=== PATIENT | female | born 2000 | race Two or more races ===

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

== ENCOUNTER 2021-05-24 09:34 | Emergency (ER) | payer OTHER ==
[2021-05-24 09:49] VITALS: BP 115/59
[2021-05-24] MEDS ORDERED: ONDANSETRON ODT 4 MG TABLET TL STA (10:34)
[2021-05-24] MEDS ORDERED: ACETAMINOPHEN 325 MG TABLET PO STA (10:34)
[2021-05-24] MEDS ORDERED: IBUPROFEN 400 MG TABLET PO STA (10:35)
--- NOTE | 2021-05-24 10:37 | ED Physician Documentation ---
PD HPI HEADACHE - Stated complaint Stated Complaint: SOA/MIGRAINE/STOMACH PX - Chief complaint Chief Complaint: General - History obtained from History obtained from: Patient - History of Present Illness Timing - onset: Today, Yesterday Timing - duration: Days (2) Timing - details: Abrupt onset, Still present Worst headache ever?: No: Worst headache ever? Location: Front Quality: Throbbing Associated symptoms: Nausea. No: Fever, Weakness, Numbness Improved by: Rest Worsened by: Light Contributing factors: Other (She received her second Pfizer Covid shot 2 days ago and started feeling general aches, nausea, some migraine type headache yesterday into today. She does have history of some migraines in the past. Here largely for work note.). No: Recent illness, Trauma Recently seen: Clinic (COVID 2nd vaccine 2 days ago.) Review of Systems Constitutional: reports: Chills, Myalgias. denies: Fever Nose: denies: Rhinorrhea / runny nose, Congestion Throat: denies: Sore throat Respiratory: denies: Cough GI: reports: Nausea. denies: Vomiting, Diarrhea Neurologic: reports: Generalized weakness, Headache. denies: Focal weakness, Confused, Altered mental status PD PAST MEDICAL HISTORY - Past Medical History Cardiovascular: None Respiratory: None Neuro: Migraines Endocrine/Autoimmune: None - Past Surgical History Past Surgical History: No - Present Medications Home Medications: Ambulatory Orders Medication Instructions Recorded Confirmed Nitrofurantoin Monohyd/M-Cryst 100 mg PO BID #10 capsule 09/10/20 [Macrobid 100 mg Capsule] Phenazopyridine HCl [Pyridium] 200 mg PO TID PRN #6 tablet 09/10/20 Ondansetron Odt [Zofran] 4 mg TL Q6H PRN #10 tablet 05/24/21 - Allergies Allergies/Adverse Reactions: Allergies Allergy/AdvReac Type Severity Reaction Status Date / Time No Known Drug Allergies Allergy Verified 09/10/20 22:07 - Social History Does the pt smoke?: No Smoking Status: Never smoker Does the pt drink ETOH?: No Does the pt have substance abuse?: No - Immunizations Immunizations are current?: Yes PD ED PE NORMAL - Vitals Vital signs reviewed: Yes - General General: Alert and oriented X 3, No acute distress, Well developed/nourished - HEENT HEENT: Pharynx benign - Neck Neck: Supple, no meningeal sign, No adenopathy - Cardiac Cardiac: RRR, No murmur - Respiratory Respiratory: Clear bilaterally - Abdomen Abdomen: Soft, Non tender - Derm Derm: Normal color, Warm and dry - Neuro Neuro: Alert and oriented X 3, No motor deficit, Normal speech Results - Vitals Vitals: Vital Signs - 24 hr 05/24/21 09:39 Temperature 36.4 C L Heart Rate 94 Respiratory 16 Rate Blood Pressure 115/59 L O2 Saturation 98 Oxygen O2 Source Room air PD MEDICAL DECISION MAKING - ED course Complexity details: considered differential (Having significant side effects posterior Covid vaccine. She declined anything particular medication becker. Largely here for work note but did accept some ibuprofen and nausea meds.), d/w patient Departure - Departure Disposition: 01 Home, Self Care Clinical Impression: Status post administration of all doses of COVID-19 vaccine series, Myalgia after COVID-19 vaccination Headache Qualifiers: Headache type: unspecified Headache chronicity pattern: acute headache Intractability: not intractable Qualified Code(s): R51.9 - Headache, unspecified Condition: Stable Record reviewed to determine appropriate education?: Yes Follow-Up: [facility] [Provider Group] Prescriptions: Ondansetron Odt [Zofran] 4 mg TL Q6H PRN #10 tablet PRN Reason: Nausea / Vomiting Comments: At home today with adequate fluids. Tylenol or ibuprofen as needed for pains and headaches. I did transmit a prescription for Zofran (ondansetron) for [place] [facility] [place] [facility] Otherwise rest at home today and tomorrow and you should be improved in that timeframe. Forms: Activity restrictions Discharge Date/Time: 05/24/21 11:10
== END 2021-05-24 11:10 | disposition home or self-care (01) ==
LOC: ED 09:34
DX: R51.9 Headache, unspecified (principal); M79.10 Myalgia, unspecified site; R11.0 Nausea; T50.B95A Adverse effect of other viral vaccines, initial encounter
CPT/HCPCS: 99282; A9270; Q0162

== ENCOUNTER 2021-05-25 10:39 | Emergency (ER) | payer OTHER ==
--- NOTE | 2021-05-25 11:25 | ED Physician Documentation ---
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 Now with 2 days of increased pain and redness around nailbed. No drainage.). No: Fall, Twist, Crush Timing - onset: Yesterday Timing - details: Abrupt onset Associated symptoms: Swelling, Discolored Similar symptoms before: Has not had sx before Review of Systems Constitutional: denies: Fever Neurologic: denies: Focal weakness, Numbness PD PAST MEDICAL HISTORY - Past Medical History Cardiovascular: None Respiratory: None Neuro: Migraines Endocrine/Autoimmune: None - Past Surgical History Past Surgical History: No - Present Medications Home Medications: Ambulatory Orders Medication Instructions Recorded Confirmed Nitrofurantoin Monohyd/M-Cryst 100 mg PO BID #10 capsule 09/10/20 [Macrobid 100 mg Capsule] Phenazopyridine HCl [Pyridium] 200 mg PO TID PRN #6 tablet 09/10/20 Ondansetron Odt [Zofran] 4 mg TL Q6H PRN #10 tablet 05/24/21 Mupirocin Calcium [Mupirocin] 1 applic TP TID #15 gm 05/25/21 Sulfamethox/Trimeth 800/160 1 each PO BID #10 tablet 05/25/21 [Bactrim Ds 800/160] - Allergies Allergies/Adverse Reactions: Allergies Allergy/AdvReac Type Severity Reaction Status Date / Time No Known Drug Allergies Allergy Verified 05/25/21 11:03 - Social History Does the pt smoke?: No Smoking Status: Never smoker Does the pt drink ETOH?: No Does the pt have substance abuse?: No - Immunizations Immunizations are current?: Yes PD ED PE NORMAL - Vitals Vital signs reviewed: Yes - General General: Alert and oriented X 3, Well developed/nourished - Extremities Extremities: Other (right great toe nailbed with fungal decay. There is redness and swelling of nailbed under the area. No redness at corner per se, looks like nailbed infection.) - Neuro Neuro: Alert and oriented X 3, No motor deficit, No sensory deficit Results - Vitals Vitals: Oxygen O2 Source Room air Departure - Departure Disposition: 01 Home, Self Care Clinical Impression: Infected nailbed of toe Qualifiers: Laterality: left Qualified Code(s): L03.032 - Cellulitis of left toe Condition: Stable Record reviewed to determine appropriate education?: Yes Prescriptions: Sulfamethox/Trimeth 800/160 [Bactrim Ds 800/160] 1 each PO BID #10 tablet Mupirocin Calcium [Mupirocin] 1 applic TP TID #15 gm Comments: This looks like an early infection of the nailbed. Soak in warm water 2-3 times daily and apply mupirocin antibiotic ointment lightly to the area. Bactrim oral antibiotic as directed. I would anticipate improvement over 2-3 days. Recheck if not better or worsening. Tylenol or Ibuprofen for pains. I transmitted the prescriptions to [facility] pharmacy. Discharge Date/Time: 05/25/21 12:15
[2021-05-25] MEDS ORDERED: LIDOCAINE OINTMENT 5% 35.44 GM TUBE TOP STA (11:35)
[2021-05-25] MEDS ORDERED: SULFAMETH/TRIMETH DS 800/160 MG TABLET PO STA (11:36)
[2021-05-25 12:15] VITALS: BP 104/66
== END 2021-05-25 12:15 | disposition home or self-care (01) ==
LOC: ED 10:39
DX: L03.032 Cellulitis of left toe (principal)
CPT/HCPCS: 99282; 99283; A9270

== ENCOUNTER 2021-07-08 22:23 | Emergency (ER) | payer OTHER ==
[2021-07-08 22:40] LABS: RAPID STREP SCREEN Negative (Negative)
--- NOTE | 2021-07-08 23:45 | ED Physician Documentation ---
PD HPI HEENT - Stated complaint Stated Complaint: TIGHTNESS IN THROAT - Chief complaint Chief Complaint: Heent - History obtained from History obtained from: Patient - History of Present Illness Timing - onset: How many days ago (1-2) Timing - duration: Days Timing - details: Gradual onset Location: Throat Associated symptoms: Cough. 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 denies fever. She is COVID vaccinated. Review of Systems Constitutional: denies: Fever Ears: denies: Ear pain Nose: denies: Congestion, Sinus pressure / pain Throat: reports: Sore throat Respiratory: reports: Cough. denies: Dyspnea PD PAST MEDICAL HISTORY - Past Medical History Cardiovascular: None Respiratory: None Neuro: Migraines Endocrine/Autoimmune: None - Past Surgical History Past Surgical History: No - Present Medications Home Medications: Ambulatory Orders Medication Instructions Recorded Confirmed Nitrofurantoin Monohyd/M-Cryst 100 mg PO BID #10 capsule 09/10/20 [Macrobid 100 mg Capsule] Phenazopyridine HCl [Pyridium] 200 mg PO TID PRN #6 tablet 09/10/20 Ondansetron Odt [Zofran] 4 mg TL Q6H PRN #10 tablet 05/24/21 Mupirocin Calcium [Mupirocin] 1 applic TP TID #15 gm 05/25/21 Sulfamethox/Trimeth 800/160 1 each PO BID #10 tablet 05/25/21 [Bactrim Ds 800/160] - Allergies Allergies/Adverse Reactions: Allergies Allergy/AdvReac Type Severity Reaction Status Date / Time No Known Drug Allergies Allergy Verified 07/08/21 22:24 - Social History Does the pt smoke?: No Smoking Status: Never smoker Does the pt drink ETOH?: No Does the pt have substance abuse?: No - Immunizations Immunizations are current?: Yes - POLST Patient has POLST: No PD ED PE NORMAL - Vitals Vital signs reviewed: Yes - General General: Alert and oriented X 3, No acute distress, Well developed/nourished - HEENT HEENT: Moist mucous membranes, Other (mild posterior oropharyngeal erythema without exudate or obvious swelling) - Neck Neck: Supple, no meningeal sign - Respiratory Respiratory: No respiratory distress, Clear bilaterally Results - Vitals Vitals: Vital Signs - 24 hr 07/08/21 07/09/21 22:24 00:30 Temperature 36.5 C 36.6 C Heart Rate 72 73 Respiratory 16 17 Rate Blood Pressure 116/68 115/69 O2 Saturation 98 98 Oxygen O2 Source Room air - Labs Labs: Laboratory Tests 07/08/21 22:28 Group A Strep Rapid Negative PD MEDICAL DECISION MAKING - ED course Complexity details: considered differential, d/w patient ED course: rapid strep negative. she is given PO decadron, return precautions discussed, work excuse provided Departure - Departure Disposition: 01 Home, Self Care Clinical Impression: Pharyngitis Condition: Good Instructions: ED Pharyngitis Viral Report Pending Forms: Activity restrictions Discharge Date/Time: 07/09/21 00:30
[2021-07-09] MEDS ORDERED: DEXAMETHASONE 10 MG/ML VIAL PO STA (00:23)
[2021-07-09] MEDS ORDERED: CHERRY SYRUP 10 ML UDC PO ONE (00:23)
[2021-07-09 00:31] VITALS: BP 115/69
== END 2021-07-09 00:30 | disposition home or self-care (01) ==
LOC: ED 22:23
DX: J02.9 Acute pharyngitis, unspecified (principal)
CPT/HCPCS: 87070; 87430; 99282; 99283

== ENCOUNTER 2021-07-15 16:24 | Emergency (ER) | payer OTHER ==
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
[2021-07-15 17:07] LABS: BASOPHILS # (AUTO) 0.1 10^3/uL (0.0-0.1); BASOPHILS % (AUTO) 0.6 %; EOSINOPHILS # (AUTO) 0.2 10^3/uL (0.0-0.7); EOSINOPHILS % (AUTO) 1.7 %; HCT - HEMATOCRIT 40.8 % (37.0-47.0); HGB - HEMOGLOBIN 13.1 g/dL (12.0-16.0); LYMPHOCYTES # (AUTO) 3.3 10^3/uL (1.5-3.5); LYMPHOCYTES % (AUTO) 30.3 %; MEAN CORPUSCULAR HEMOGLOBIN 29.8 pg (27.0-31.0); MEAN CORPUSCULAR HGB CONC 32.1 g/dL (32.0-36.0); MEAN CORPUSCULAR VOLUME 92.7 fL (81.0-99.0); MEAN PLATELET VOLUME 10.6 fL (7.9-10.8); MONOCYTES # (AUTO) 0.7 10^3/uL (0.0-1.0); MONOCYTES % (AUTO) 6.4 %; NEUTROPHILS # (AUTO) 6.6 10^3/uL (1.5-6.6); NEUTROPHILS % (AUTO) 60.6 %; PLT - PLATELET COUNT 291 10^3/uL (130-450); RED CELL DISTRIBUTION WIDTH 13.5 % (12.0-15.0)
[2021-07-15 17:23] LABS: ACETAMINOPHEN < 10 ug/mL (10-30); ALBUMIN 4.5 g/dL (3.2-5.5); ALBUMIN/GLOBULIN RATIO 1.3 (1.0-2.2); ALKALINE PHOSPHATASE 76 IU/L (42-121); ALT ALANINE AMINOTRANSFERASE 28 IU/L (10-60); AST ASPARTATE AMINOTRANSFERASE 20 IU/L (10-42); BILIRUBIN,TOTAL 0.6 mg/dL (0.2-1.0); BUN - BLOOD UREA NITROGEN 11 mg/dL (6-20); CALCIUM 9.7 mg/dL (8.5-10.3); CARBON DIOXIDE - CO2 25 mmol/L (21-32); CHLORIDE 103 mmol/L (101-111); CREATININE 0.7 mg/dL (0.4-1.0); ETOH - ETHANOL < 5.0 mg/dL; GFR - MDRD 107 (>89); GLUCOSE 93 mg/dL (70-100); LIPASE 37 U/L (22-51); POTASSIUM 3.8 mmol/L (3.5-5.0); SALICYLATE < 6.0 mg/dL; SODIUM 138 mmol/L (135-145); TOTAL PROTEIN 7.9 g/dL (6.7-8.2)
[2021-07-15 17:32] LABS: MUDS CUTOFF CONCENTRATIONS CUTOFF CONC BELOW:
[2021-07-15 17:40] LABS: BILIRUBIN,URINE NEGATIVE (NEGATIVE); GLUCOSE, URINE (UA) NEGATIVE (NEGATIVE); KETONES,URINE (UA) NEGATIVE (NEGATIVE); LEUKOCYTE ESTERASE, URINE NEGATIVE (NEGATIVE); NITRITE,URINE NEGATIVE (NEGATIVE); OCCULT BLOOD,URINE TRACE-INTA (NEGATIVE); PROTEIN,URINE NEGATIVE (NEGATIVE); UROBILINOGEN,URINE 0.2 (NORMAL) E.U./dL (NORMAL)
[2021-07-15 17:42] LABS: CLARITY,URINE CLEAR (CLEAR); HCG UR QUAL NEGATIVE
[2021-07-15 17:52] LABS: AMPHETAMINE SCREEN,URINE NEGATIVE (NEGATIVE); COCAINE SCREEN URINE NEGATIVE (NEGATIVE); METHAMPHETAMINES SCREEN, URINE NEGATIVE (NEGATIVE); OPIATE SCREEN, URINE NEGATIVE (NEGATIVE); THC CANNABINOID SCREEN, URINE NEGATIVE (NEGATIVE)
[2021-07-15 17:53] LABS: BARBITURATE SCREEN,UR NEGATIVE (NEGATIVE); BENZODIAZEPINES SCREEN, URINE NEGATIVE (NEGATIVE); METHADONE SCREEN, URINE NEGATIVE (NEGATIVE); OXYCODONE SCREEN, URINE NEGATIVE (NEGATIVE); PROPOXYPHENE SCREEN, URINE NEGATIVE (NEGATIVE); TRICYCLIC ANTIDEPRESSANT,URINE NEGATIVE (NEGATIVE)
[2021-07-15 18:29] LABS: B. PARAPERTUSSIS- RESP PCR PAN NOT DETECTED; B. PERTUSSIS- RESP PCR PANEL NOT DETECTED; C. PNEUMONIAE- RESP PCR PANEL NOT DETECTED; CORONAVIRUS 229E-RESP PCR NOT DETECTED; CORONAVIRUS HKU1-RESP PCR NOT DETECTED; CORONAVIRUS NL63-RESP PCR NOT DETECTED; CORONAVIRUS OC43-RESP PCR DETECTED; HUMAN METAPNEUMOVIRUS NOT DETECTED; INFLUENZA A- RESP PCR PANEL NOT DETECTED; INFLUENZA B - RESP PCR PANEL NOT DETECTED; M. PNEUMONIAE- RESP PCR PANEL NOT DETECTED; PARAINFLUENZA VIRUS 1 NOT DETECTED; PARAINFLUENZA VIRUS 2 NOT DETECTED; PARAINFLUENZA VIRUS 3 NOT DETECTED; PARAINFLUENZA VIRUS 4 NOT DETECTED; RHINOVIRUS/ENTEROVIRUS NOT DETECTED; RSV- RESP PCR PANEL NOT DETECTED; SARS-CoV-2 -RESP PCR PANEL NOT DETECTED
[2021-07-15 21:26] VITALS: BP 106/57
== END 2021-07-15 21:43 ==
LOC: ED 16:24
DX: F31.30 Bipolar disorder, current episode depressed, mild or moderate severity, unspecified (principal); F22 Delusional disorders; R45.851 Suicidal ideations; Z20.822 Contact with and (suspected) exposure to COVID-19
CPT/HCPCS: 0202U; 36415; 80053; 80306; 80307; 80320; 80329; 81003; 81025; 83690; 84443; 85025; 99283; 81001; 87086

== ENCOUNTER 2021-11-23 09:54 | Emergency (ER) | payer OTHER ==
[2021-11-23] MEDS ORDERED: SODIUM CHLORIDE 0.9% 1,000 ML IV STA (10:09)
[2021-11-23] MEDS ORDERED: METOCLOPRAMIDE 10 MG/2 ML VIAL IVP STA (10:09)
--- NOTE | 2021-11-23 10:10 | ED Physician Documentation ---
PD HPI ABD PAIN - Stated complaint Stated Complaint: VOMITING/HEAD PX - Chief complaint Chief Complaint: Abd Pain - History obtained from History obtained from: Patient - Additional information Additional information: at 8 weeks gestation presents with vomiting in . It been progressive over the last week or so despite taking vitamin B. She denies abdominal pain but does have a headache with it mild in intensity mostly on the right side associated with some light sensitivity. Has not taken any prescribed medications for the nausea or headache. It was not a sudden onset nor worst headache of life. Review of Systems Constitutional: denies: Fever, Chills Throat: reports: Reviewed and negative Cardiac: reports: Reviewed and negative Respiratory: reports: Reviewed and negative PD PAST MEDICAL HISTORY - Past Medical History Cardiovascular: None Respiratory: None Neuro: Migraines Endocrine/Autoimmune: None Psych: Depression, Anxiety - Past Surgical History Past Surgical History: No - Present Medications Home Medications: Ambulatory Orders Medication Instructions Recorded Confirmed Metoclopramide [Reglan] 10 mg PO Q6H PRN #20 tablet 11/23/21 - Allergies Allergies/Adverse Reactions: Allergies Allergy/AdvReac Type Severity Reaction Status Date / Time No Known Drug Allergies Allergy Verified 11/23/21 10:00 - Social History Does the pt smoke?: No Smoking Status: Never smoker Does the pt drink ETOH?: No Does the pt have substance abuse?: No - Immunizations Immunizations are current?: Yes - POLST Patient has POLST: No PD ED PE NORMAL - Vitals Vital signs reviewed: Yes - General General: Alert and oriented X 3, No acute distress - HEENT HEENT: PERRL, EOMI - Neck Neck: Supple, no meningeal sign, No bony TTP - Cardiac Cardiac: RRR, No murmur - Respiratory Respiratory: No respiratory distress, Clear bilaterally - Abdomen Abdomen: Normal bowel sounds, Soft, Non tender, Other (Bedside ultrasonography demonstrates single live intrauterine corresponding with dates with heart rate of 165.) - Derm Derm: Normal color - Extremities Extremities: No edema, No calf tenderness / cord - Neuro Neuro: Alert and oriented X 3, Normal speech Results - Vitals Vitals: Vital Signs - 24 hr 11/23/21 11/23/21 11/23/21 09:56 10:39 11:53 Temperature 36.1 C L 36.5 C 36.8 C Heart Rate 99 84 79 Respiratory 16 16 16 Rate Blood Pressure 120/62 109/71 106/68 O2 Saturation 98 98 100 Oxygen O2 Source Room air - Labs Labs: Laboratory Tests 11/23/21 11/23/21 10:08 10:19 Sodium 137 Potassium 3.6 Chloride 102 Carbon Dioxide 24 Anion Gap 11.0 BUN 8 Creatinine 0.6 Estimated GFR (MDRD) 127 Glucose 92 Calcium 9.6 Urine Color YELLOW Urine Clarity CLEAR Urine pH 7.0 Ur Specific [place] 1.020 Urine Protein NEGATIVE Urine Glucose (UA) NEGATIVE Urine Ketones TRACE Urine Occult Blood SMALL H Urine Nitrite NEGATIVE Urine Bilirubin NEGATIVE Urine Urobilinogen 0.2 (NORMAL) Ur Leukocyte Esterase NEGATIVE Urine RBC 0-5 Urine WBC 0-3 Ur Squamous Epith Cells MOD Squamous H Urine Bacteria Few Urine Mucus Moderate Strands Ur Microscopic Review INDICATED Urine Culture Comments NOT INDICATED PD MEDICAL DECISION MAKING - ED course ED course: 21-year-old woman with hyperemesis gravidarum. Feeling much better after the administration of IV fluids and Reglan and passed p.o. challenge. Benign belly with reassuring bedside ultrasound using POCUS. Departure - Departure Disposition: 01 Home, Self Care Clinical Impression: Hyperemesis gravidarum Condition: Good Record reviewed to determine appropriate education?: Yes Instructions: ED Preg Morning Sickness Prescriptions: Metoclopramide [Reglan] 10 mg PO Q6H PRN #20 tablet PRN Reason: nausea or headache Comments: I sent your prescription electronically to [facility] in [place]. Follow-up with OB as scheduled. Return for new or worsening symptoms. Discharge Date/Time: 11/23/21 12:00
[2021-11-23 10:24] LABS: BILIRUBIN,URINE NEGATIVE (NEGATIVE); GLUCOSE, URINE (UA) NEGATIVE (NEGATIVE); KETONES,URINE (UA) TRACE mg/dL (NEGATIVE); LEUKOCYTE ESTERASE, URINE NEGATIVE (NEGATIVE); NITRITE,URINE NEGATIVE (NEGATIVE); OCCULT BLOOD,URINE SMALL (NEGATIVE); PROTEIN,URINE NEGATIVE (NEGATIVE); UROBILINOGEN,URINE 0.2 (NORMAL) E.U./dL (NORMAL)
[2021-11-23 10:27] LABS: CLARITY,URINE CLEAR (CLEAR)
[2021-11-23 10:34] LABS: CALCIUM 9.6 mg/dL (8.5-10.3); CREATININE 0.6 mg/dL (0.4-1.0); POTASSIUM 3.6 mmol/L (3.5-5.0)
[2021-11-23 10:42] LABS: BACTERIA,URINE Few /HPF (None Seen); RBC,URINE 0-5 /HPF (0-5); SQUAMOUS EPITHELIAL CELL,UR MOD Squamous (<= Few); WBC,URINE 0-3 /HPF (0-5)
[2021-11-23 10:43] LABS: MUCUS,URINE Moderate Strands
[2021-11-23] MEDS ORDERED: ACETAMINOPHEN 500 MG TABLET PO STA (11:36)
[2021-11-23 11:54] VITALS: BP 106/68
== END 2021-11-23 12:00 | disposition home or self-care (01) ==
LOC: ED 09:54
DX: O21.0 Mild hyperemesis gravidarum (principal); Z3A.08 8 weeks gestation of pregnancy
CPT/HCPCS: 36415; 80048; 81001; 96374; 99282; 99283; A9270; J2765; 81003; 87086

== ENCOUNTER 2022-01-11 03:47 | Outpatient (CLI) | payer OTHER | END 2022-01-11 03:48 | disposition critical access hospital (66) | LOC: EMS 03:47 | DX: O26.92 Pregnancy related conditions, unspecified, second trimester (principal); R10.31 Right lower quadrant pain; M54.9 Dorsalgia, unspecified | CPT/HCPCS: A0425; A0429 ==

== ENCOUNTER 2022-01-11 04:08 | Emergency (ER) | payer OTHER ==
[2022-01-11 04:22] VITALS: BP 115/72
[2022-01-11] MEDS ORDERED: IBUPROFEN 600 MG TABLET PO STA (04:26)
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
--- OUTSIDE RECORDS SUMMARY | 2022-01-11 04:33 | EXTERNAL MEDICAL SUMMARY RPT | Continuity of Care Document ---
:2000 Author Organization [facility] Address [address] [place] [address] Phone Care Team Providers Name Role Phone Miscellaneous, Doctor Unavailable Unavailable John Ridley Unavailable Unavailable John Ridley Unavailable Allergies No information. Encounters No information. Medications date description facility 20211211 Ondansetron 8 MG Oral Tablet [facility]ital 20211113 Diphenhydramine Hydrochloride 25 MG Ora l Capsule [facility] 20211113 Diphenhydramine Hydrochloride 25 MG Ora [facility] Problems date description facility 20211211 Encounter for supervision of normal [facility] first t 20211211 Encounter for screening for infections with a [facility] predominantly [id number] weeks gestation of [facility] 20211206 Encounter for supervision of normal [facility] unspeci Procedures date description facility 20211231 [facility] 20211231 Finding [facility] 20211231 Diagnosis [facility] 20211211 [facility] 20211206 [facility] 20211202 [facility] 20211202 [facility] Results No information. Vital Signs date measurement value source 20211211 weight_standard 149.98 lb 20211211 weight_metric 68.03 kg 20211211 height_standard 64 in 20211211 height_metric 162.56 cm 20211211 BP_systolic 98 mm[Hg] 20211211 BP_diastolic 62 mm[Hg] 20211211 BMI 25.7 kg/m2 20211231 weight_standard 67.58 lb 20211231 weight_metric 30.66 kg 20211231 height_standard 64 in 20211231 height_metric 162.56 cm 20211231 BP_systolic 94 mm[Hg] 20211231 BP_diastolic 62 mm[Hg] 20211231 BMI 25.5 kg/m2
== END 2022-01-11 05:07 | disposition home or self-care (01) ==
LOC: EDUNIT# → ED 04:08
DX: O99.342 Other mental disorders complicating pregnancy, second trimester (principal); F43.9 Reaction to severe stress, unspecified; O9A.212 Injury, poisoning and certain other consequences of external causes complicating pregnancy, second trimester; S50.12XA Contusion of left forearm, initial encounter; X83.8XXA Intentional self-harm by other specified means, initial encounter; Z3A.15 15 weeks gestation of pregnancy
CPT/HCPCS: 99282; 99283; A9270